=== PATIENT | female | born 1985 | race Hispanic/Latino ===

== ENCOUNTER 2023-09-06 01:42 | Emergency (ER) | payer OTHER ==
[~2023-09-06] VITALS: Ht 162.6 cm; Wt 61.2 kg
[2023-09-06] MEDS ORDERED: FAMO20TA8 PO (02:01)
[2023-09-06] MEDS ORDERED: DICL20GE TP (02:02)
[2023-09-06] MEDS: MAGNESIUM CITRATE 296 ML SOLUTION PO ONE (02:21)
[2023-09-06 02:41] VITALS: BP 123/73; PULSE 77; RESP 18; O2SAT 100
== END 2023-09-06 02:45 | disposition home or self-care (01) ==
LOC: EDH 01:42
DX: G44.209 Tension-type headache, unspecified, not intractable (principal); K21.9 Gastro-esophageal reflux disease without esophagitis; K59.00 Constipation, unspecified
CPT/HCPCS: 99282